=== PATIENT | female | born 2000 | race Caucasian/White ===

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

== ENCOUNTER 2023-07-29 23:22 | Inpatient (IN) ==
[2023-07-30] MEDS ORDERED: Buffered Lidocaine 1% SYRIN 1 ml INTRADERM ONE (00:19)
[2023-07-30] MEDS ORDERED: Promethazine INJ(RESTRICTED) 25 MG/ML 1 ml VIAL IV PRN (00:19)
[2023-07-30] MEDS ORDERED: Lidocaine 1% VIAL 10 MG/ML 30 ML VIAL INJ PRN (00:19)
[2023-07-30] MEDS ORDERED: Lactated Ringers 1000 ml BAG 1,000 ML IV ONE ×2 (00:19→01:54)
[2023-07-30] MEDS ORDERED: Nalbuphine 10 MG/ML 1 ML VIAL IV PRN (00:19)
[2023-07-30 00:40] LABS: ABS Eosinophils 0.2 10^3/uL (0.0-0.5); ABS Lymphocytes 2.6 10^3/uL (1.0-4.8); ABS Neutrophils 12.1 10^3/uL (1.5-7.6); ABS Nucleated RBC 0.01 10^3/ul; Eosinophil % 1.4 %; Hematocrit 38.9 % (35-45); Hemoglobin 13.2 g/dL (11.5-14.3); Mean Corpuscular Hgb Conc 33.9 g/dL (31-36); Mean Corpuscular Volume 88.5 fL (80-97); Mean Platelet Volume 8.4 fL (7.5-11.2); Platelet Count 273 10^3/uL (150-450); Red Cell Distribution Width 13.4 % (12-17)
[2023-07-30] MEDS ORDERED: Lactated Ringers 1000 ml BAG 1,000 ML IV SCH ×3 (01:00→10:00)
[2023-07-30] MEDS ORDERED: OBEPIDURAL (200 ML) 200 ML EPIDURAL ONE (01:14)
[2023-07-30] MEDS ORDERED: Bupivacaine 0.5% SDV PF 30ML VIAL ONE (01:14)
[2023-07-30] MEDS ORDERED: Phenylephrine 40 mcg/mL 10mL (400mcg) SYRINGE IV PUSH PRN ×2 (01:54)
[2023-07-30] MEDS ORDERED: OBEPIDURAL (200 ML) 200 ML EPIDURAL SCH (02:00)
[2023-07-30 02:34] LABS: Urine Appearance Clear; Urine Bilirubin Negative (Negative); Urine Blood 2+ (Negative); Urine Color Straw; Urine Glucose Negative (Negative); Urine Ketones Trace (Negative); Urine Nitrite Negative (Negative); Urine Protein Negative (Negative); Urine Specific Gravity 1.004 (1.002-1.030); Urine Urobilinogen Negative (Negative)
[2023-07-30 02:42] LABS: Urine Bacteria Absent (Absent); Urine Red Blood Cell Trace(0-2/hpf) (Absent); Urine White Blood Cell Trace(0-5/hpf) (Absent)
[2023-07-30 02:48] LABS: Urine Benzodiazepine Screen None Detected (None Detect); Urine Cannabinoids Screen None Detected (None Detect); Urine Opiates Screen None Detected (None Detect)
[2023-07-30] MEDS ORDERED: Famotidine IV 10 MG/ML 2 ml VIAL (20 mg) IV SLOW PU ONE (06:41)
[2023-07-30] MEDS ORDERED: Oxytocin in LR 20,000 MILLI.UNIT/1,000 ML BAG IV SCH (06:55)
[2023-07-30] MEDS ORDERED: Glycerin ADULT 2.4 gm SUPP PR PRN (09:08)
[2023-07-30] MEDS ORDERED: Oxytocin 10 UNITS/ML 1 ML VIAL IM PRN (09:08)
[2023-07-30] MEDS ORDERED: Dibucaine 1% OINT 28.35 GM TUBE PR PRN (09:08)
[2023-07-30] MEDS ORDERED: Witch Hazel PAD JAR TOPICAL PRN (09:08)
[2023-07-31 07:11] LABS: ABS Eosinophils 0.4 10^3/uL (0.0-0.5); ABS Lymphocytes 3.1 10^3/uL (1.0-4.8); ABS Monocytes 0.8 10^3/uL (0.0-0.9); ABS Neutrophils 10.3 10^3/uL (1.5-7.6); Eosinophil % 2.5 %; Hematocrit 31.3 % (35-45); Hemoglobin 10.8 g/dL (11.5-14.3); Lymphocyte % 21.5 %; Mean Corpuscular Hemoglobin 30.5 pg (27-33); Mean Corpuscular Hgb Conc 34.4 g/dL (31-36); Mean Corpuscular Volume 88.9 fL (80-97); Mean Platelet Volume 8.5 fL (7.5-11.2); Platelet Count 222 10^3/uL (150-450); Red Blood Count 3.53 10^6/uL (3.63-4.92); Red Cell Distribution Width 13.7 % (12-17); White Blood Count 14.6 10^3/uL (3.8-11.8)
[2023-08-01 08:04] VITALS: BP 137/71
== END 2023-08-01 10:57 | disposition home or self-care (01) | DRG 560 ==
LOC: MCHOBOUT 23:22 → MCHOB 07-30 00:02
PROVIDERS: ADMIT Advanced Practice Midwife; ATTEND Advanced Practice Midwife